=== PATIENT | female | born 2000 | race Caucasian/White ===

== ENCOUNTER 2021-06-07 12:26 | Emergency (ER) | payer BC ==
[2021-06-08 14:49] LABS: SARS-CoV-2 PCR by NAA DETECTED (NotDetected)
== END 2021-06-07 13:30 | disposition home or self-care (01) ==
LOC: ERS 12:26
DX: U07.1 COVID-19 (principal); J45.909 Unspecified asthma, uncomplicated
CPT/HCPCS: 99283; U0003; U0005